=== PATIENT | female | born 2000 | race Two or more races ===

== ENCOUNTER 2024-06-13 11:26 | Observation (INO) | payer MEDICAID ==
[~2024-06-13] VITALS: Ht 165.1 cm; Wt 76.4 kg
[2024-06-13 11:55] VITALS: BP 114/75; TEMP 98.3
[2024-06-13 12:24] VITALS: PULSE 97; RESP 16; O2SAT 99
[2024-06-13 12:31] LABS: Urine Bacteria None Seen /hpf (None Seen)
[2024-06-13 12:55] LABS: Vaginal Bacteria Moderate; Vaginal Clue Cells Few; Vaginal Epithelial Cells Moderate; Vaginal Trichomonas Not Present
[2024-06-13 13:01] LABS: Urine Blood Negative /uL (Negative); Urine Clarity Clear (Clear); Urine Color Light-Yellow (Yellow); Urine Mucus FEW (None Seen); Urine Protein, UAD Negative (Negative); Urine Specific Gravity 1.019 (1.001-1.035); Urine Urobilinogen Normal (Negative); Urine WBC 1 /hpf (0 - 5); Urine pH 7.5 (5.0-9.0)
[2024-06-13 14:40] LABS: Fern Testing Negative
[2024-06-13] MEDS ORDERED: METR-344 PO (15:08)
== END 2024-06-13 15:20 | disposition home or self-care (01) ==
LOC: ER 11:26 → LDRP 12:49
PROVIDERS: ADMIT Obstetrics & Gynecology; ATTEND Obstetrics & Gynecology
DX: O42.913 Preterm premature rupture of membranes, unspecified as to length of time between rupture and onset of labor, third trimester (principal); O26.893 Other specified pregnancy related conditions, third trimester; N89.8 Other specified noninflammatory disorders of vagina; R10.2 Pelvic and perineal pain; R51.9 Headache, unspecified; Z3A.30 30 weeks gestation of pregnancy
CPT/HCPCS: 59025; 81001; 81002; 84112; 87210; 94760; 99284; G0378; Q0114